=== PATIENT | female | born 1960 | race Caucasian/White ===

== ENCOUNTER → 2016-07-22 | Outpatient (REF) | payer BC ==
[2016-07-22 11:46] LABS: BILIRUBIN,URINE Negative (Negative); COLOR,URINE Yellow; GLUCOSE, URINE (UA) Negative (Negative); LEUKOCYTE ESTERASE ,URINE Trace (Negative); PH,URINE 6.5 (5.0 - 8.0); UROBILINOGEN,URINE 0.2 mg/dL (0.2-1.0)
[2016-07-22 11:51] LABS: CLARITY,URINE Slightly Cloudy; URINE CENTRIFUGED VOLUME 12 mL
[2016-07-22 11:54] LABS: RBC,URINE 0-2 /HPF
== END ==
LOC: LAB 10:02
PROVIDERS: ATTEND Family Medicine
DX: K57.32 Diverticulitis of large intestine without perforation or abscess without bleeding (principal); N81.11 Cystocele, midline
CPT/HCPCS: 81003; 81015; 87088